=== PATIENT | female | born 1990 | race Caucasian/White ===

== ENCOUNTER 2016-12-05 08:35 | Emergency (ER) | payer OTHER ==
[2016-12-05 08:44] VITALS: TEMP 98.3; BMI 18.3
--- NOTE | 2016-12-05 09:16 | PDOC ---
History of Present Illness - General Chief Complaint: Vomiting/Diarrhea Stated Complaint: NAUSEA, DIZZINESS, VOMITING Time Seen by Provider: 12/05/16 09:04 - History of Present Illness Travel History: No Initial Comments: 12/05/16 09:20 26 yo F with no significant pmhx presents with two day history of nausea and vomiting. She states she has had diarrhea x2 and non- bilous vomiting x5 over the past two days. Denies blood in stool. She has associated chills but not fevers. She has had decreased appetite and has felt lightheaded with headache. Denies CP, SOB, abd. pain, or palpitations. 12/05/16 09:22 Timing/Duration: reports: constant Quality: reports: mild Past History - Past Medical History Allergies/Adverse Reactions: Allergies Allergy/AdvReac Type Severity Reaction Status Date / Time bee pollen Allergy Verified 12/05/16 08:40 No Known Drug Allergies AdvReac Verified 12/05/16 08:40 pollen Allergy Uncoded 12/05/16 08:40 Home Medications: Ambulatory Orders NK [No Known Home Medication] 06/20/16 Anemia: Yes (DURING ) Asthma: No Cancer: No Cardiac Disorders: No CVA: No COPD: No CHF: No Dementia: No Diabetes: No GI Disorders: No Disorders: No HTN: No Hypercholesterolemia: No Liver Disease: No Suicide Attempt (Hx): No Seizures: No Thyroid Disease: No - Reproductive History Is Patient Now?: No (#): 2 Para: 2 - Immunization History Immunization Up to Date: Yes - Psycho/Social/Smoking Cessation Hx Anxiety: No Suicidal Ideation: No Smoking History: Never smoked Have you smoked in the past 12 months: No Hx Alcohol Use: No Drug/Substance Use Hx: No Substance Use Type: None Hx Substance Use Treatment: No *Physical Exam - Vital Signs Last Vital Signs Temp Pulse Resp BP Pulse Ox 98.3 F 102 H 19 96/56 100 12/05/16 08:40 12/05/16 08:40 12/05/16 08:40 12/05/16 08:40 12/05/16 08:40 Medical Decision Making - Medical Decision Making 12/05/16 09:23 A:26 yo F with no significant pmhx presents with two day history of nausea and vomiting. Most likely viral gastroenteritis. P: * Will get urine . * IVF NS 1L bolus * Zofran 4mg IVPB for nausea. 12/05/16 11:31 * responded well to fluid and Zofran * Urine preg. negative. * Will discharge with Zofran and encourage hydration. *DC/Admit/Observation/Transfer Diagnosis at time of Disposition: Viral gastroenteritis - Discharge Dispostion Disposition: HOME Condition at time of disposition: Stable Admit: No - Patient Instructions Printed Discharge Instructions: DI for Viral Gastroenteritis -- Adult Additional Instructions: Follow up with primary doctor in one week. Take Zofran as needed for nausea. Drink plenty of fluids. Regular diet. Increase activity as tolerated. If symptoms worsen or you develop fever or chills please return to ED.
[2016-12-05] MEDS ORDERED: ONDANSETRON 4 MG/2 ML VIAL ONE (09:24)
[2016-12-05] MEDS: SODIUM CHLORIDE 1,000 ML IV STA ×2 (09:31→11:02)
[2016-12-05] MEDS: ONDANSETRON 4 MG/2 ML VIAL IVPB ONE (09:31)
--- NOTE | 2016-12-05 10:37 | PDOC ---
Attending Attestation - Resident Resident Name: Emmanuel Rincon - ED Attending Attestation I have performed the following: I have examined & evaluated the patient, The case was reviewed & discussed with the resident, I agree w/resident's findings & plan, Exceptions are as noted - HPI HPI: 12/05/16 10:33 Healthy 26-year-old female presents with nausea/vomiting/diarrhea 2 since last night, no associated abdominal pain. No other red flags on history. - Physicial Exam PE: 12/05/16 10:37 Afebrile, heart rate 100. No jaundice or pallor. Abdomen is soft/nontender/nondistended, no right lower quadrant tenderness - Medical Decision Making 12/05/16 10:37 Patient seen and evaluated with the resident. I agree with the overall evaluation, assessment, and management with the following summary of visit: 26-year-old female presents with nausea/vomiting/diarrhea now resolved without red flags on history or physical exam, almost consistent with gastritis. IV fluid rehydration Antiemetics Check urine Reassess, by mouth trial, dispo accordingly
[2016-12-05 11:48] VITALS: BP 102/53; PULSE 91
== END 2016-12-05 11:48 | disposition home or self-care (01) ==
LOC: JER 08:35
PROC: 3E033GC Introduction of Other Therapeutic Substance into Peripheral Vein, Percutaneous Approach (ICD-10-PCS; principal; 2016-12-05)
PROC: 3E0337Z Introduction of Electrolytic and Water Balance Substance into Peripheral Vein, Percutaneous Approach (ICD-10-PCS; 2016-12-05)
DX: A08.4 Viral intestinal infection, unspecified (principal); B97.89 Other viral agents as the cause of diseases classified elsewhere
CPT/HCPCS: 84703; 99284-25

== ENCOUNTER 2016-12-23 11:12 | Emergency (ER) | payer OTHER ==
[2016-12-23 11:22] VITALS: BP 103/67; PULSE 97; TEMP 99; BMI 18.3
--- NOTE | 2016-12-23 12:15 | PDOC ---
History of Present Illness - General Chief Complaint: Sore Throat Stated Complaint: THROAT/ LOSING VOICE Time Seen by Provider: 12/23/16 11:58 History Source: Patient Exam Limitations: No Limitations - History of Present Illness Initial Comments: 12/23/16 13:07 Complaint: Sore throat, losing voice Patient is a healthy 26-year-old female with 2-3 days of nasal congestion, sore throat, now losing voice. Patient states painful to swallow. No fever GENERAL/CONSTITUTIONAL: No fever, weakness. dizziness HEAD, EYES, EARS, NOSE AND THROAT: No change in vision. No ear pain or discharge. +sore throat. + Losing voice CARDIOVASCULAR: No chest pain RESPIRATORY: No shortness of breath or cough GASTROINTESTINAL: No pain, nausea, vomiting, diarrhea or constipation GENITOURINARY: No dysuria MUSCULOSKELETAL: No neck or back pain SKIN: No rash NEUROLOGIC: No headache, vertigo, loss of consciousness, or loss of sensation. GENERAL: The patient is awake, alert, and fully oriented, in no acute distress. HEAD: Normal with no signs of trauma. EYES: Pupils equal, round and reactive to light, sclera anicteric, conjunctiva clear. ENT: pharynx: no erythema, no exudate, uvula midline NECK: supple CHEST: clear, nontender, rr ABD: soft, nontender EXTREMITIES: Normal range of motion, no edema. NEUROLOGICAL: Normal speech, normal gait. SKIN: Warm, Dry Past History - Past Medical History Allergies/Adverse Reactions: Allergies Allergy/AdvReac Type Severity Reaction Status Date / Time bee pollen Allergy Verified 12/23/16 11:22 No Known Drug Allergies AdvReac Verified 12/23/16 11:22 pollen Allergy Uncoded 12/23/16 11:22 Home Medications: Ambulatory Orders NK [No Known Home Medication] 12/23/16 Anemia: Yes (DURING ) Asthma: No Cancer: No Cardiac Disorders: No CVA: No COPD: No CHF: No Dementia: No Diabetes: No GI Disorders: No Disorders: No HTN: No Hypercholesterolemia: No Liver Disease: No Suicide Attempt (Hx): No Seizures: No Thyroid Disease: No - Reproductive History (#): 2 Para: 2 - Immunization History Immunization Up to Date: Yes - Psycho/Social/Smoking Cessation Hx Anxiety: No Suicidal Ideation: No Smoking History: Never smoked Have you smoked in the past 12 months: No Hx Alcohol Use: No Drug/Substance Use Hx: No Substance Use Type: None Hx Substance Use Treatment: No *Physical Exam - Vital Signs Last Vital Signs Temp Pulse Resp BP Pulse Ox 99.0 F 97 H 20 103/67 98 12/23/16 11:19 12/23/16 11:19 12/23/16 11:19 12/23/16 11:19 12/23/16 11:19 Medical Decision Making - Medical Decision Making 12/23/16 13:12 URI symptoms for 2-3 days with sore throat and now losing voice, pharynx exam is non-concerning, her sinuses like a laryngitis, nothing more serious. We'll do strep and reassess, will give pain medicine as she has not taken any, no fever. If strep is positive we'll treat but unlikely, will give supportive care otherwise *DC/Admit/Observation/Transfer Diagnosis at time of Disposition: URI (upper respiratory infection) Qualifiers: URI type: unspecified URI Qualified Code(s): J06.9 - Acute upper respiratory infection, unspecified - Discharge Dispostion Disposition: HOME Condition at time of disposition: Stable Admit: No - Patient Instructions Printed Discharge Instructions: DI for Viral Upper Respiratory Infection -- Adult Additional Instructions: Drink 2-3 L of water daily Take Tylenol 650 mg every 4 hours or Motrin 600 mg every 6 hours for fever and pain Return to the nearest ER if short of breath, unable to swallow or feeling sicker Followup with your doctor in one to 2 days
[2016-12-23] MEDS ORDERED: IBUPROFEN 600 MG TABLET (FP) PO ONE ×2 (13:06→13:10)
== END 2016-12-23 13:19 | disposition home or self-care (01) ==
LOC: JERFT 11:12
DX: J06.9 Acute upper respiratory infection, unspecified (principal); B97.89 Other viral agents as the cause of diseases classified elsewhere
CPT/HCPCS: 87070; 87430; 99281-25

== ENCOUNTER 2018-04-22 18:21 | Emergency (ER) | payer OTHER ==
--- NOTE | 2018-04-22 18:44 | PDOC ---
Rapid Medical Evaluation Chief Complaint: Pain Time Seen by Provider: 04/22/18 18:41 Medical Evaluation: Allergies Allergy/AdvReac Type Severity Reaction Status Date / Time bee pollen Allergy Verified 01/12/18 13:22 No Known Drug Allergies AdvReac Verified 01/12/18 13:22 pollen Allergy Uncoded 01/12/18 13:22 04/22/18 18:42 I have performed a brief in person evaluation of this patient. The patient presents with a CC of: Abd pain HPI: Pt is a 27 YO female who states over the past 24 hours she has had lower abd pain, she admits to white vaginal discharge, denies STD hx. PE: Skin: Clear Heart: RRR Lungs: Clear Abd: No pain in the RLQ or LLQ, no rebound tenderness MS: Moves all extremities without difficulty Neuro: Appropriate affect, Psych: appropriate affect I have ordered: abd protocol with STD testing The patient will proceed to the ED for further evaluation. Discharge Disposition - Diagnosis Abdominal pain Qualifiers: Abdominal location: unspecified location Qualified Code(s): R10.9 - Unspecified abdominal pain - Referrals Referrals: Yashira Gonzalez MD [Primary Care Provider] - - Patient Instructions - Post Discharge Activity
[2018-04-22 18:47] VITALS: BP 105/67; PULSE 87; TEMP 99.1; BMI 17.4
--- NOTE | 2018-04-22 19:52 | PDOC ---
History of Present Illness - General Chief Complaint: Pain Stated Complaint: Nausea/ ABD PAIN Time Seen by Provider: 04/22/18 18:41 History Source: Patient, Spouse Exam Limitations: No Limitations - History of Present Illness Travel History: No Initial Comments: 04/22/18 19:53 Patient was sent from urgent care this afternoon for evaluation of 3-4 days of abdominal pain, bloating, and vaginal discharge. had a pelvic exam at the urgent care today where some cultures were obtained and sent, also had a urinalysis for which was deemed negative. there was no definitive diagnosis and was instructed to come to the emergency department for further evaluation and treatment. She denies fever, states his had some intermittent nausea, no breast tenderness or evidence of . has irregular menses and has not had a period since the beginning of March but was deemed negative for today. Has history of ovarian cysts with rupture a few years ago but did not feel that same type of pain. Is her home they both report to be exclusive and monogamous. Reported any sexually transmitted diseases in the past. has pain with intercourse on and off x 1 month. Abdominal Pain Onset Location: reports: suprapubic, generalized abdomen Pain Radiation: denies: no radiation Past History - Travel Traveled outside of the country in the last 30 days: No Close contact w/someone who was outside of country & ill: No - Past Medical History Allergies/Adverse Reactions: Allergies Allergy/AdvReac Type Severity Reaction Status Date / Time bee pollen Allergy Verified 04/22/18 18:42 No Known Drug Allergies AdvReac Verified 04/22/18 18:42 pollen Allergy Uncoded 04/22/18 18:42 Home Medications: Ambulatory Orders NK [No Known Home Medication] 12/23/16 Anemia: Yes (DURING ) Asthma: No Cancer: No Cardiac Disorders: No CVA: No COPD: No CHF: No Dementia: No Diabetes: No GI Disorders: No Disorders: No HTN: No Hypercholesterolemia: No Liver Disease: No Seizures: No Thyroid Disease: No - Reproductive History (#): 2 Para: 2 - Immunization History Immunization Up to Date: Yes - Suicide/Smoking/Psychosocial Hx Smoking History: Never smoked Have you smoked in the past 12 months: No Hx Alcohol Use: No Drug/Substance Use Hx: No Substance Use Type: None Hx Substance Use Treatment: No Review of Systems - Review of Systems Able to Perform ROS?: Yes Is the patient limited Mauritian proficient: Yes Constitutional: Yes: Symptoms Reported, See HPI, Malaise. No: Fever, Loss of Appetite HEENTM: No: Symptoms Reported : Yes: Symptoms Reported, See HPI, Discharge (thin white). No: Burning Musculoskeletal: No: Symptoms Reported Integumentary: No: Symptoms Reported All Other Systems: Reviewed and Negative *Physical Exam - Vital Signs Last Vital Signs Temp Pulse Resp BP Pulse Ox 99.1 F 87 16 105/67 100 04/22/18 18:43 04/22/18 18:43 04/22/18 18:43 04/22/18 18:43 04/22/18 18:43 - Physical Exam General Appearance: Yes: Nourished, Appropriately Dressed. No: Apparent Distress HEENT: positive: JOSHUA, Normal ENT Inspection, TMs Normal, Pharynx Normal Neck: positive: Supple. negative: Tender Respiratory/Chest: positive: Lungs Clear, Normal Breath Sounds Cardiovascular: positive: Regular Rate Female Pelvic Exam: positive: normal external exam (no masses, lesions, ulcerations noted), cervical os closed, normal adnexa (no palpable masses), CMT (patient has positive cervical motion tenderness and states his #8 on a 1-10 scale for pain), discharge (thin white but not copious from cervix), adnexal tenderness (has bilateral tenderness but worse with cervical motion), uterus ( soft nontender no masses palpated). negative: Bartholin mass Gastrointestinal/Abdominal: positive: Normal Bowel Sounds, Tender, Soft Musculoskeletal: positive: Normal Inspection. negative: CVA Tenderness Extremity: positive: Normal Capillary Refill, Normal Range of Motion. negative : Tender Integumentary: positive: Dry, Warm, Pale Neurologic: positive: softball coach II-XII NML intact, Fully Oriented, Alert, Normal Mood/ Affect, Normal Response, Motor Strength 5/5 Medical Decision Making - Medical Decision Making 04/22/18 19:52 After evaluation and exam, found patient to have been sent from urgent care today for thorough workup for abdominal pain and pelvic pain possible PID. Will transfer to main number department for further evaluation and review of obtain laboratory work and possible further testing. Patient updated this plan. Case was turned over to charge nurse Viktor, and NKECHI Del Toro for remainder of care. He should and has been updated to plan labs obtained and will move to bed 3 in [facility] area 04/22/18 20:00 *DC/Admit/Observation/Transfer Diagnosis at time of Disposition: Abdominal pain Qualifiers: Abdominal location: unspecified location Qualified Code(s): R10.9 - Unspecified abdominal pain - Referrals Referrals: Yashira Gonzalez MD [Primary Care Provider] - - Patient Instructions - Post Discharge Activity
[2018-04-22 20:14] LABS: BASO % 0.4 % (0-2.0); EOS % 0.7 % (0-4.5); HEMATOCRIT 38.1 % (32.4-45.2); HEMOGLOBIN 12.7 GM/dL (10.7-15.3); LYMPH % 21.1 % (8-40); MCH 28.9 pg (25.7-33.7); MCHC 33.2 g/dl (32.0-36.0); NEUT % 70.8 % (42.8-82.8); PLATELET COUNT 313 K/MM3 (134-434); RBC 4.38 M/mm3 (3.60-5.2); RDW 13.3 % (11.6-15.6); WHITE BLOOD COUNT 8.1 K/mm3 (4.0-10.0)
[2018-04-22 20:18] LABS: URINE APPEARANCE CLEAR; URINE BILIRUBIN NEGATIVE (<2.0 mg/dL); URINE COLOR LTYELLOW; URINE GLUCOSE (UA) NEGATIVE (NEGATIVE); URINE KETONE TRACE (NEGATIVE); URINE LEUK ESTERASE NEGATIVE (NEGATIVE); URINE NITRITE NEGATIVE (NEGATIVE); URINE PROTEIN NEGATIVE (NEGATIVE); URINE UROBILINOGEN NEGATIVE mg/dL (0.2-1.0)
--- NOTE | 2018-04-22 20:35 | PDOC ---
*Physical Exam - Vital Signs Last Vital Signs Temp Pulse Resp BP Pulse Ox 99.1 F 87 16 105/67 100 04/22/18 18:43 04/22/18 18:43 04/22/18 18:43 04/22/18 18:43 04/22/18 18:43 ED Treatment Course - LABORATORY CBC & Chemistry Diagram: 04/22/18 20:00 04/22/18 20:00 - ADDITIONAL ORDERS Additional order review: Laboratory Results 04/22/18 04/22/18 20:00 20:00 Urine Color Ltyellow Urine Appearance Clear Urine pH 6.0 Ur Specific [place] 1.015 Urine Protein Negative Urine Glucose (UA) Negative Urine Ketones Trace H Urine Blood Negative Urine Nitrite Negative Urine Bilirubin Negative Urine Urobilinogen Negative Ur Leukocyte Esterase Negative Urine HCG, Qual Negative 04/22/18 20:00 RBC 4.38 MCV 87.0 MCHC 33.2 RDW 13.3 MPV 7.0 L Neutrophils % 70.8 D Lymphocytes % 21.1 D Monocytes % 7.0 Eosinophils % 0.7 Basophils % 0.4 Medical Decision Making - Medical Decision Making 04/22/18 20:34 Sign out received from [employer]. Pt pending labs. (+) CMT. Will also consider transvaginal us. Possible PID? *DC/Admit/Observation/Transfer Diagnosis at time of Disposition: Vaginal yeast infection, Pelvic pain Ovarian cyst Qualifiers: Laterality: left Qualified Code(s): N83.202 - Unspecified ovarian cyst, left side - Discharge Dispostion Disposition: HOME Condition at time of disposition: Stable Decision to Admit order: No - Prescriptions Prescriptions: Fluconazole 150 mg PO ONCE #1 tablet - Referrals Referrals: Yashira Gonzalez MD [Primary Care Provider] - - Patient Instructions Printed Discharge Instructions: DI for Ovarian Cyst, DI for Pelvic Pain Additional Instructions: You have pelvic pain, which may be caused by your yeast infection and ovarian cyst You were also prophylactically treated for STD's today. Your ultrasound shows a small cyst on the L side. Please take ibuprofen 600mg every 6 hours as needed for pain Take the fluconazole on Saturday for your yeast infection. A prescription was sent to the pharmacy Follow up with your [employer] this week Return to the ED for any new or worsening symptoms - Post Discharge Activity Forms/Work/School Notes: Back to Work
[2018-04-22 20:46] LABS: ALBUMIN 3.1 g/dl (3.4-5.0); ANION GAP 7 MMOL/L (8-16); BILIRUBIN,TOTAL 0.4 mg/dL (0.2-1); BLOOD UREA NITROGEN 12 mg/dL (7-18); CHLORIDE 108 mmol/L (98-107); CO2 27 mmol/L (21-32); CREATININE 0.6 mg/dL (0.55-1.3); GLUCOSE,RANDOM 95 mg/dL (74-106); LIPASE 131 U/L (73-393); POTASSIUM 4.1 mmol/L (3.5-5.1); SGOT/AST 10 U/L (15-37); SGPT/ALT 16 U/L (13-61); SODIUM 142 mmol/L (136-145); TOT PROT 7.4 g/dl (6.4-8.2)
[2018-04-22 20:47] LABS: ALK PHOS 61 U/L (45-117)
[2018-04-22 21:07] LABS: CALCIUM 8.9 mg/dL (8.5-10.1)
[2018-04-22] MEDS ORDERED: AZITHROMYCIN 500 MG TABLET PO ONE (23:12)
[2018-04-22] MEDS ORDERED: FLUCONAZOLE 50 MG TABLET PO ONE (23:13)
[2018-04-22] MEDS ORDERED: AZITHROMYCIN 500 MG TABLET ONE (23:27)
[2018-04-22] MEDS ORDERED: cefTRIAXone SODIUM 1 GM VIAL ONE (23:27)
== END 2018-04-23 00:40 | disposition home or self-care (01) ==
LOC: JER 18:21
DX: B37.3 Candidiasis of vulva and vagina (principal); N83.202 Unspecified ovarian cyst, left side
CPT/HCPCS: 36415; 76830-TC; 80053; 81003; 83690; 84703; 85025; 87070; 87205; 87491; 87591; 87661; 96372; 99282-25

== ENCOUNTER 2018-07-15 16:15 | Emergency (ER) | payer OTHER ==
[2018-07-15 16:30] VITALS: BP 105/65; PULSE 85; TEMP 98.5; BMI 18.3
--- NOTE | 2018-07-15 16:33 | PDOC ---
Rapid Medical Evaluation Chief Complaint: Vaginal Bleeding Time Seen by Provider: 07/15/18 16:30 Medical Evaluation: Allergies Allergy/AdvReac Type Severity Reaction Status Date / Time bee pollen Allergy Verified 04/22/18 18:42 No Known Drug Allergies AdvReac Verified 04/22/18 18:42 pollen Allergy Uncoded 04/22/18 18:42 Vital Signs Temp Pulse Resp BP Pulse Ox 98.5 F 85 18 105/65 97 07/15/18 16:27 07/15/18 16:27 07/15/18 16:27 07/15/18 16:27 07/15/18 16:27 07/15/18 16:30 I have performed a brief in-person evaluation of this patient. The patient presents with a chief complaint of: 2 weeks of vaginal bleeding. pt using nexplanon for BCM. report had nexplanon for 4 years which was changed to new nexplanon 3 month ago Pertinent physical exam findings:A&O x 3 I have ordered the following:CBC, CMP,Uhc, pelvis us The patient will proceed to the ED for further evaluation Discharge Disposition - Diagnosis Vaginal bleeding - Discharge Dispostion Condition at time of disposition: Stable - Referrals - Patient Instructions - Post Discharge Activity
[2018-07-15 17:24] LABS: BASO % 0.6 % (0-2.0); EOS % 1.1 % (0-4.5); HEMATOCRIT 37.9 % (32.4-45.2); HEMOGLOBIN 13.1 GM/dL (10.7-15.3); LYMPH % 30.3 % (8-40); MCHC 34.6 g/dl (32.0-36.0); MEAN CELL VOLUME 86.6 fl (80-96); MEAN PLT VOLUME 7.2 fl (7.5-11.1); MONO % 7.2 % (3.8-10.2); NEUT % 60.8 % (42.8-82.8); PLATELET COUNT 311 K/MM3 (134-434); RBC 4.37 M/mm3 (3.60-5.2); RDW 13.5 % (11.6-15.6); WHITE BLOOD COUNT 6.4 K/mm3 (4.0-10.0)
[2018-07-15 17:50] LABS: ALBUMIN 4.1 g/dl (3.4-5.0); ALK PHOS 68 U/L (45-117); ANION GAP 7 MMOL/L (8-16); BILIRUBIN,TOTAL 0.4 mg/dL (0.2-1); BLOOD UREA NITROGEN 16 mg/dL (7-18); CALCIUM 8.7 mg/dL (8.5-10.1); CHLORIDE 110 mmol/L (98-107); CO2 25 mmol/L (21-32); CREATININE 0.7 mg/dL (0.55-1.3); GLUCOSE,RANDOM 90 mg/dL (74-106); POTASSIUM 3.9 mmol/L (3.5-5.1); SGOT/AST 11 U/L (15-37); SGPT/ALT 20 U/L (13-61); SODIUM 142 mmol/L (136-145); TOT PROT 7.4 g/dl (6.4-8.2)
--- NOTE | 2018-07-15 18:25 | PDOC ---
History of Present Illness - General Chief Complaint: Vaginal Bleeding Stated Complaint: Vaginal Bleeding Time Seen by Provider: 07/15/18 16:30 History Source: Patient Exam Limitations: No Limitations - History of Present Illness Travel History: No Initial Comments: 07/15/18 17:22 28-year-old female with no past medical history except for ovarian cyst presents to ED with vaginal bleeding for the past 8 days with passage of large clots. Patient states had her implantable control medication changed 3 months ago at [facility] after having the nexaplanon in for 4 years. Patient states has had no abdominal pain, weakness nausea, or dizziness. Patient states has an appointment next month with her [facility]A REPAIRER for follow-up. Timing/Duration: reports: constant Activities at Onset: reports: none Aggravating Factors: improves with: None Alleviating Factors: improves with: None Past History - Travel Traveled outside of the country in the last 30 days: No - Past Medical History Allergies/Adverse Reactions: Allergies Allergy/AdvReac Type Severity Reaction Status Date / Time bee pollen Allergy Verified 04/22/18 18:42 No Known Drug Allergies AdvReac Verified 04/22/18 18:42 pollen Allergy Uncoded 04/22/18 18:42 Home Medications: Ambulatory Orders Fluconazole 150 mg PO ONCE #1 tablet 04/22/18 Ibuprofen [Motrin -] 600 mg PO QID #28 tablet 04/23/18 Anemia: Yes (DURING ) Asthma: No Cancer: No Cardiac Disorders: No CVA: No COPD: No CHF: No Dementia: No Diabetes: No GI Disorders: No Disorders: No HTN: No Hypercholesterolemia: No Liver Disease: No Seizures: No Thyroid Disease: No - Reproductive History Is Patient Now?: No (#): 2 Para: 2 Cervical CA: No Dysfunctional Uterine Bleeding: No Ectopic : No Endometrial CA: No Polycystic Ovaries: No Therapeutic (s) & number: No Tubal Ligation: No - Immunization History Immunization Up to Date: Yes - Suicide/Smoking/Psychosocial Hx Smoking History: Never smoked Have you smoked in the past 12 months: No Information on smoking cessation initiated: No Hx Alcohol Use: No Drug/Substance Use Hx: No Substance Use Type: None Hx Substance Use Treatment: No Patient Lives Alone: No Lives with/in: spouse/SO Review of Systems - Review of Systems Able to Perform ROS?: Yes Constitutional: No: Symptoms Reported HEENTM: No: Symptoms Reported Respiratory: No: Symptoms reported Cardiac (ROS): No: Symptoms Reported ABD/GI: No: Symptoms Reported : Yes: Discharge Musculoskeletal: No: Symptoms Reported Integumentary: No: Symptoms Reported Neurological: No: Symptoms reported *Physical Exam - Vital Signs Last Vital Signs Temp Pulse Resp BP Pulse Ox 98.5 F 85 18 105/65 97 07/15/18 16:27 07/15/18 16:27 07/15/18 16:27 07/15/18 16:27 07/15/18 16:27 - Physical Exam General Appearance: Yes: Nourished, Appropriately Dressed. No: Apparent Distress HEENT: negative: Pale Conjunctivae Respiratory/Chest: positive: Lungs Clear, Normal Breath Sounds. negative: Respiratory Distress, Accessory Muscle Use Cardiovascular: positive: Regular Rhythm, Regular Rate. negative: Murmur Female Pelvic Exam: positive: vaginal bleeding (bright red blood in moderate amount with grape size clot) Gastrointestinal/Abdominal: positive: Soft. negative: Distended, Guarding, Rebound, Tenderness Musculoskeletal: negative: CVA Tenderness Integumentary: positive: Normal Color, Warm, Moist Neurologic: positive: Motor Strength 5/5 (ambulatory) Moderate Sedation - Procedure Monitoring Vital Signs: Procedure Monitoring Vital Signs Temperature 98.5 F 07/15/18 16:27 Pulse Rate 85 07/15/18 16:27 Respiratory Rate 18 07/15/18 16:27 Blood Pressure 105/65 07/15/18 16:27 O2 Sat by Pulse Oximetry (%) 97 07/15/18 16:27 ED Treatment Course - LABORATORY CBC & Chemistry Diagram: 07/15/18 16:55 07/15/18 16:55 - ADDITIONAL ORDERS Additional order review: Laboratory Results 07/15/18 07/15/18 16:55 16:55 Sodium 142 Potassium 3.9 Chloride 110 H Carbon Dioxide 25 Anion Gap 7 L BUN 16 Creatinine 0.7 Creat Clearance w eGFR > 60 Random Glucose 90 Calcium 8.7 Total Bilirubin 0.4 AST 11 L ALT 20 Alkaline Phosphatase 68 Total Protein 7.4 Albumin 4.1 Urine HCG, Qual Negative 07/15/18 16:55 RBC 4.37 MCV 86.6 MCHC 34.6 RDW 13.5 MPV 7.2 L Neutrophils % 60.8 Lymphocytes % 30.3 D Monocytes % 7.2 Eosinophils % 1.1 Basophils % 0.6 Medical Decision Making - Medical Decision Making 07/15/18 17:24 Chief complaint: Vaginal bleeding times one week with clots no abdominal pain no weakness no dizziness no fever no dysuria Exam: No abdominal tenderness moderate amount of bright red blood with grape size clots noted on sanitary napkin Plan: Labs, urine , pelvic ultrasound 07/15/18 18:26 Laboratory Tests 07/15/18 07/15/18 07/15/18 16:55 16:55 16:55 WBC 6.4 Hgb 13.1 Hct 37.9 MPV 7.2 L Neutrophils % 60.8 Lymphocytes % 30.3 D Sodium 142 Potassium 3.9 Chloride 110 H Carbon Dioxide 25 Anion Gap 7 L BUN 16 Creatinine 0.7 Random Glucose 90 Calcium 8.7 Total Bilirubin 0.4 AST 11 L ALT 20 Alkaline Phosphatase 68 Total Protein 7.4 Albumin 4.1 Urine HCG, Qual Negative Patient remained stable with no complaints. Patient to be discharged home with and children. Patient to follow up with [facility]MB[facility]LLA REPAIRER next month *DC/Admit/Observation/Transfer Diagnosis at time of Disposition: Vaginal bleeding - Discharge Dispostion Disposition: HOME Condition at time of disposition: Good - Referrals Referrals: Ashley Haddad MD [Primary Care Provider] - - Patient Instructions Printed Discharge Instructions: DI for Vaginal Bleeding Additional Instructions: Try to eat high iron foods such as beans, red meats green leafy vegetables and if she develop any abdominal cramping , may take Tylenol for pain. If symptoms worsen and you develop difficulty breathing, weakness dizziness or severe abdominal pain please return to the emergency room immediately. otherwise follow-up with her UMB[employer]LLA REPAIRER as scheduled next month. - Post Discharge Activity
== END 2018-07-15 18:38 | disposition home or self-care (01) ==
LOC: JER 16:15
DX: N93.9 Abnormal uterine and vaginal bleeding, unspecified (principal)
CPT/HCPCS: 36415; 76856-TC; 80053; 84703; 85025; 99282-25

== ENCOUNTER → 2019-02-16 | Day surgery (SDC) | payer OTHER ==
--- NOTE | 2019-02-17 11:46 | PATH ---
Surgical Pathology Report Patient Name: UOG HARO [facility]. Rec. 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 Electronically Signed Indira Khan M.D. Gross Description Received in formalin labeled "right breast 10-11:00," are 6 [place]-yellow, cylindrical portions of fibroadipose tissue ranging from 0.2-0.9 cm in length and averaging 0.1 cm in diameter. The specimens are submitted in toto in one cassette. Time to formalin fixation: Less than one minute Total formalin fixation time: Approximately 8 hours. /02/16/2019 [facility]/02/16/2019
== END | disposition home or self-care (01) ==
LOC: JRADUS-SUR 09:01 → JRADUS 09:01
PROVIDERS: ATTEND Obstetrics & Gynecology
PROC: 0HBT3ZX Excision of Right Breast, Percutaneous Approach, Diagnostic (ICD-10-PCS; principal; 2019-02-16)
DX: D24.1 Benign neoplasm of right breast (principal)
CPT/HCPCS: 19083; 87899; 88305-TC; A4648

== ENCOUNTER 2019-05-20 08:32 | Emergency (ER) | payer OTHER ==
[2019-05-20 08:50] VITALS: BP 95/48; PULSE 68; TEMP 98.1; BMI 20.1
--- NOTE | 2019-05-20 09:15 | PDOC ---
History of Present Illness - General Chief Complaint: Vaginal Sxs Stated Complaint: VAGINAL DISCOMFORT Time Seen by Provider: 05/20/19 08:51 - History of Present Illness Initial Comments: 05/20/19 09:09 CHIEF COMPLAINT: vaginal discharge/odor HISTORY OF PRESENT ILLNESS: 28 yo F with no significant PMH [facility] concerns of vaginal discharge and odor for 1 week. Patient states she used OTC vaginal suppository antifungal with some relief, and that she has an appointment with [facility] "but I couldn't wait any longer. " She states she will get blood testing for HIV/syphilis at [facility] but wanted to "get a culture" here. No recent travel or sick contacts. PAST MEDICAL HISTORY: Denies past medical history FAMILY HISTORY: Denies SOCIAL HISTORY: Denies tobacco, alcohol, illicit drug use. SURGICAL HISTORY: Denies ALLERGIES: No known drug allergies REVIEW OF SYSTEMS General/Constitutional: Denies fever or chills. Denies weakness, weight change. HEENT: Denies change in vision. Denies ear pain or discharge. Denies sore throat. Cardiovascular: Denies chest pain or shortness of breath. Respiratory: Denies cough, wheezing, or hemoptysis. Gastrointestinal: Denies nausea, vomiting, diarrhea or constipation. Denies rectal bleeding. Genitourinary: Vaginal discharge/odor/discomfort x 1 week. Denies dysuria, frequency, or change in urination. Musculoskeletal: Denies joint or muscle swelling or pain. Denies neck or back pain. Skin and breasts: Denies rash or easy bruising. Neurologic: Denies headache, vertigo, loss of consciousness, or loss of sensation. PHYSICAL EXAM General Appearance: Well-appearing, appropriately dressed. No apparent distress , no intoxication. HEENT: EOMI, PERRLA, normal ENT inspection, normal voice, TMs normal, pharynx normal. No conjunctival pallor. No photophobia, scleral icterus. Neck: Supple. Trachea midline. No tenderness, rigidity, carotid bruit, stridor , lymphadenopathy, or thyromegaly. Respiratory/Chest: Lungs CTAB. No shortness of breath, chest tenderness, respiratory distress, accessory muscle use. No crackles, rales, rhonchi, stridor , wheezing, dullness Cardiovascular: RRR. S1, S2. No JVD, murmur, bradycardia, tachycardia. Vascular Pulses: Dorsalis-Pedis (R): 2+, Dorsalis-Pedis (L): 2+ Gastrointestinal/Abdominal: Normal bowel sounds. Abdomen soft, non-distended. No tenderness or rebound tenderness. No organomegaly, pulsatile mass, guarding , hernia, hepatomegaly, splenomegaly. Pelvic: External genitalia normal without lesions. Vaginal vault with thin, white discharge without odor. Cervix is long and closed. No cervical motion tenderness. Uterus is nontender and normal in size. Adnexa are nontender and without masses. Lymphatic: No adenopathy, tenderness. Musculoskeletal/Extremities: Normal inspection. FROM of all extremities, normal capillary refill. Pelvis Stable. No CVA tenderness. No tenderness to extremities, pedal edema, swelling, erythema or deformity. Integumentary: Appropriate color, dry, warm. No cyanosis, erythema, jaundice or rash Neurologic: automotive machinist II-XII intact. Fully oriented, alert. Appropriate mood/affect. Motor strength 5/5. No appreciable EOM palsy, facial droop or sensory deficit. 05/20/19 09:25 Past History - Past Medical History Allergies/Adverse Reactions: Allergies Allergy/AdvReac Type Severity Reaction Status Date / Time bee pollen Allergy Verified 05/20/19 08:52 No Known Drug Allergies AdvReac Verified 05/20/19 08:52 pollen Allergy Uncoded 05/20/19 08:52 Home Medications: Ambulatory Orders Fluconazole 150 mg PO ONCE #1 tablet 04/22/18 Ibuprofen [Motrin -] 600 mg PO QID #28 tablet 04/23/18 Fluconazole [Diflucan] 150 mg PO ONCE #1 tablet 05/20/19 Anemia: Yes (DURING ) Asthma: No Cancer: No Cardiac Disorders: No CVA: No COPD: No CHF: No Dementia: No Diabetes: No GI Disorders: No Disorders: No HTN: No Hypercholesterolemia: No Liver Disease: No Seizures: No Thyroid Disease: No - Reproductive History (#): 2 Para: 2 Cervical CA: No Dysfunctional Uterine Bleeding: No Ectopic : No Endometrial CA: No Polycystic Ovaries: No Therapeutic (s) & number: No Tubal Ligation: No - Immunization History Immunization Up to Date: Yes - Psycho Social/Smoking Cessation Hx Smoking History: Never smoked Have you smoked in the past 12 months: No Hx Alcohol Use: No Drug/Substance Use Hx: No Substance Use Type: None Hx Substance Use Treatment: No *Physical Exam - Vital Signs Last Vital Signs Temp Pulse Resp BP Pulse Ox 98.1 F 68 14 95/48 L 100 05/20/19 08:48 05/20/19 08:48 05/20/19 08:48 05/20/19 08:48 05/20/19 08:48 Medical Decision Making - Medical Decision Making 05/20/19 09:28 28 yo F with no significant PMH [facility] with concerns of vaginal discharge and odor for 1 week. -UA, Upreg, Ucx -ct/gc, genital culture Advised patient to take medication as prescribed and follow up with [facility] as scheduled tomorrow. Advised patient of signs and symptoms for return to ED. Patient verbalized understanding and agrees to plan. Discharge - Discharge Information Problems reviewed: Yes Clinical Impression/Diagnosis: Yeast infection Condition: Stable Disposition: HOME - Admission No - Additional Discharge Information Prescriptions: Fluconazole [Diflucan] 150 mg PO ONCE #1 tablet - Follow up/Referral Referrals: [facility] [Outside] Abimael Jackson MD [Staff Physician] - - Patient Discharge Instructions Patient Printed Discharge Instructions: Facts About Sexually Transmitted Infections, DI for Vaginal Yeast Infection Additional Instructions: Please take medications as prescribed and follow up with [facility] for remaining STD testing as discussed. If you develop any severe pelvic pain or vaginal bleeding, nausea, vomiting, or any new or worsening symptoms, please return to the ER immediately. - Post Discharge Activity
[2019-05-20 09:20] LABS: URINE APPEARANCE CLOUDY; URINE BILIRUBIN NEGATIVE (NEGATIVE); URINE COLOR YELLOW; URINE GLUCOSE (UA) NEGATIVE (NEGATIVE); URINE KETONE NEGATIVE (NEGATIVE); URINE LEUK ESTERASE NEGATIVE (NEGATIVE); URINE NITRITE NEGATIVE (NEGATIVE); URINE PROTEIN NEGATIVE (NEGATIVE); URINE UROBILINOGEN 0.2 mg/dL (0.2-1.0)
== END 2019-05-20 09:25 | disposition home or self-care (01) ==
LOC: JERFT 08:32
DX: B37.9 Candidiasis, unspecified (principal); Z91.030 Bee allergy status
CPT/HCPCS: 36415; 81003; 84703; 87070; 87077; 87086; 87205; 87491; 87591; 99282-25

== ENCOUNTER 2019-08-26 16:52 | Emergency (ER) | payer OTHER ==
[2019-08-26] MEDS ORDERED: ACETAMINOPHEN 325 MG TABLET (FP) PO ONE (16:59)
--- NOTE | 2019-08-26 16:59 | PDOC ---
Rapid Medical Evaluation Time Seen by Provider: 08/26/19 16:56 Medical Evaluation: Allergies Allergy/AdvReac Type Severity Reaction Status Date / Time bee pollen Allergy Verified 05/20/19 08:52 No Known Drug Allergies AdvReac Verified 05/20/19 08:52 pollen Allergy Uncoded 05/20/19 08:52 08/26/19 16:56 Pt presents for evaluation of flu for one day. She states that her daughter was just diagnosed at with flu at her pediatricians office. Last took Motrin at 3:30 Exam: NAD, afebrile, ambulatory Orders: tylenol Pt to proceed to the ER for further evaluation Discharge Disposition - Diagnosis Flu-like symptoms - Referrals - Patient Instructions - Post Discharge Activity
[2019-08-26 17:01] VITALS: BP 99/56; PULSE 104; TEMP 99; BMI 18.3
[2019-08-26] MEDS ORDERED: ACETAMINOPHEN 325 MG TABLET (FP) ONE ×2 (17:23→17:24)
--- NOTE | 2019-08-26 17:56 | PDOC ---
History of Present Illness - General Chief Complaint: Cold Symptoms Stated Complaint: FLU LIKE SYMPTOMS Time Seen by Provider: 08/26/19 16:56 History Source: Patient Exam Limitations: No Limitations - History of Present Illness Initial Comments: 08/26/19 17:50 29-year-old female denies past medical history presents complaining of subjective fever, chills, sore throat, body aches for 36 hours. Her 5-year-old daughter was diagnosed with influenza at the character actress office today. Denies shortness of breath, headache, chest pain, abdominal pain, nausea, vomiting, diarrhea, recent travel. Patient did not receive flu vaccine this season. ROS: GENERAL/CONSTITUTIONAL: Subjective fever, chills, no weakness, dizziness HEAD, EYES, EARS, NOSE AND THROAT: Sore throat, no changes in vision, No ear pain or discharge CARDIOVASCULAR: No chest pain RESPIRATORY: Cough, no shortness of breath GASTROINTESTINAL: No pain, nausea, vomiting, diarrhea or constipation GENITOURINARY: No dysuria MUSCULOSKELETAL: No neck or back pain SKIN: No rash NEUROLOGIC: No headache, vertigo, loss of consciousness, or loss of sensation PE: GENERAL: well-appearing, NAD HEAD: NCAT EYES: Pupils equal, round and reactive to light, sclera anicteric, conjunctiva clear ENT: pharynx: Minimal erythema, no exudate, uvula midline NECK: supple CHEST: nontender RESP: clear, no w/r/r CARDIO: rrr, no m/g/r ABD: +BS, soft, nontender, non distended BACK: no midline spinal ttp, no CVAT EXTREMITIES: Normal range of motion, no edema NEUROLOGICAL: Normal speech, normal gait SKIN: Warm, Dry Is this a multiple visit Asthma Patient?: No Past History - Past Medical History Allergies/Adverse Reactions: Allergies Allergy/AdvReac Type Severity Reaction Status Date / Time bee pollen Allergy Verified 08/26/19 16:57 No Known Drug Allergies AdvReac Verified 08/26/19 16:57 pollen Allergy Uncoded 08/26/19 16:57 Home Medications: Ambulatory Orders Fluconazole 150 mg PO ONCE #1 tablet 04/22/18 Ibuprofen [Motrin -] 600 mg PO QID #28 tablet 04/23/18 Fluconazole [Diflucan] 150 mg PO ONCE #1 tablet 05/20/19 metroNIDAZOLE [Metronidazole] 500 mg PO BID 7 Days #14 tablet 05/22/19 Oseltamivir Phosphate [Tamiflu] 75 mg PO BID 5 Days #10 capsule 08/26/19 Anemia: Yes (DURING ) Asthma: No Cancer: No Cardiac Disorders: No CVA: No COPD: No CHF: No Dementia: No Diabetes: No GI Disorders: No Disorders: No HTN: No Hypercholesterolemia: No Liver Disease: No Seizures: No Thyroid Disease: No - Reproductive History (#): 2 Para: 2 Cervical CA: No Dysfunctional Uterine Bleeding: No Ectopic : No Endometrial CA: No Polycystic Ovaries: No Therapeutic (s) & number: No Tubal Ligation: No - Immunization History Immunization Up to Date: Yes - Psycho Social/Smoking Cessation Hx Smoking History: Never smoked Have you smoked in the past 12 months: No Hx Alcohol Use: Yes Drug/Substance Use Hx: No Substance Use Type: None Hx Substance Use Treatment: No *Physical Exam - Vital Signs Last Vital Signs Temp Pulse Resp BP Pulse Ox 99 F 104 H 18 99/56 L 99 08/26/19 16:57 08/26/19 16:57 08/26/19 16:57 08/26/19 16:57 08/26/19 16:57 ED Treatment Course - Medications Given in the ED: ED Medications Discontinued Medications Generic Name Dose Route Start Last Admin Trade Name Ambrosioq PRN Reason Stop Dose Admin Acetaminophen 975 mg 08/26/19 16:59 08/26/19 17:22 Tylenol - PO 08/26/19 17:00 975 mg ONCE ONE Administration Medical Decision Making - Medical Decision Making 08/26/19 17:56 29-year-old female presents with 36 hours of cough, body aches, sore throat, subjective fever, chills. 5-year-old daughter was diagnosed today with influenza. Rapid strep ordered by [facility] with negative results Will treat patient with Tamiflu Supportive care Return precautions discussed Stable for discharge Discharge - Discharge Information Problems reviewed: Yes Clinical Impression/Diagnosis: Flu-like symptoms Condition: Stable Disposition: HOME - Admission No - Follow up/Referral Referrals: Yashira Gonzalez MD [Primary Care Provider] - - Patient Discharge Instructions Additional Instructions: Rest, remain hydrated Take Tamiflu 75 mg 1 tablet twice a day x5 days Alternate between acetaminophen 975 mg and ibuprofen 600 mg every 6 hours as needed for pain Return to ED if chest pain, shortness of breath, fever, chills or worsening symptoms - Post Discharge Activity
== END 2019-08-26 18:01 | disposition home or self-care (01) ==
LOC: JERFT 16:52
DX: J11.1 Influenza due to unidentified influenza virus with other respiratory manifestations (principal); Z91.030 Bee allergy status
CPT/HCPCS: 87070; 87880; 99281-25

== ENCOUNTER 2019-09-18 10:55 | Emergency (ER) | payer OTHER ==
[2019-09-18 11:04] VITALS: BP 110/53; PULSE 69; TEMP 98.3; BMI 18.9
[2019-09-18 12:51] LABS: BASO % 0.6 % (0-2.0); EOS % 1.2 % (0-4.5); HEMATOCRIT 37.8 % (32.4-45.2); HEMOGLOBIN 12.6 GM/dL (10.7-15.3); LYMPH % 31.1 % (8-40); MCH 29.2 pg (25.7-33.7); MCHC 33.5 g/dl (32.0-36.0); MEAN CELL VOLUME 87.2 fl (80-96); MEAN PLT VOLUME 7.2 fl (7.5-11.1); MONO % 11.2 % (3.8-10.2); NEUT % 55.9 % (42.8-82.8); PLATELET COUNT 350 K/MM3 (134-434); RBC 4.34 M/mm3 (3.60-5.2); RDW 13.7 % (11.6-15.6); WHITE BLOOD COUNT 4.3 K/mm3 (4.0-10.0)
[2019-09-18 12:54] LABS: HYALINE CASTS 0 /lpf (0-8); PH,URINE 6.5 (5.0-8.0); URINE APPEARANCE CLEAR; URINE BACTERIA 46.9 /hpf (NEGATIVE); URINE BILIRUBIN NEGATIVE (NEGATIVE); URINE COLOR YELLOW; URINE GLUCOSE (UA) NEGATIVE (NEGATIVE); URINE KETONE NEGATIVE (NEGATIVE); URINE LEUK ESTERASE NEGATIVE (NEGATIVE); URINE NITRITE NEGATIVE (NEGATIVE); URINE PROTEIN NEGATIVE (NEGATIVE); URINE RBC 3 /hpf (0-4); URINE UROBILINOGEN 0.2 mg/dL (0.2-1.0); URINE WBC 1 /hpf (0-5)
[2019-09-18 13:03] LABS: INR 1.09 (0.83-1.09); PROTHROMBIN TIME (PATIENT) 12.9 SEC (9.7-13.0)
[2019-09-18 13:06] LABS: ACTIVATED PTT 34.5 SECONDS (25.2-36.5)
--- NOTE | 2019-09-18 13:07 | PDOC ---
Documentation entered by Lisa Bustos SCRIBE, acting as scribe for Yen Cortés MD. Yen Cortés MD: This documentation has been prepared by the Akash noel Nirvannie, SCRIBE, under my direction and personally reviewed by me in its entirety. I confirm that the documentation accurately reflects all work, treatment, procedures, and medical decision making performed by me. History of Present Illness - General Chief Complaint: Vaginal Bleeding Stated Complaint: VAGINAL BLEEDING Time Seen by Provider: 09/18/19 11:29 History Source: Patient Exam Limitations: No Limitations - History of Present Illness Initial Comments: 09/18/19 13:17 HPI: 29YOF with a significant past medical history of right ovarian cyst and right breast cyst who presents to the emergency department with vaginal bleeding. As per patient, she recently finished her normal menstrual cycle a week ago ( lasted 2 weeks at that time) and today presents with vaginal bleeding. Patient notes her bleeding to have paused for a week but, describes her vaginal bleeding at electric cell tender than her normal menses (usually heavy bleeding first day today only one pad). She notes associated lightheadedness, dizziness, and one episode of chills. Patient endorses 2 days of white, creamy vaginal discharge with painful intercourse (last attempt with pain yesterday). 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 She requests HIV testing and STD testing last intercourse last night with partner no prior h/o STDs pt does adult entertainment via webcam and uses primarily sex toys, but no intercourse. Denies any vaginal itching, dysuria, frequency, urgency, or hematuria. Denies fever, chills, chest pain, SOB, palpitation, weakness, N, V, D, abdominal pain, bowel problems, leg swelling, No new changes in medications. Allergies: None Past Medical History: Right ovarian cyst and right breast cyst Social history: Lives with family. No tobacco, ETOH or drug use. Surgical history: , right breast cyst removal. Meds: as documented in EMR PMD: Dr. Gonzalez 09/18/19 15:38 Past History - Past Medical History Allergies/Adverse Reactions: Allergies Allergy/AdvReac Type Severity Reaction Status Date / Time bee pollen Allergy Verified 09/18/19 11:16 No Known Drug Allergies AdvReac Verified 09/18/19 11:16 pollen Allergy Uncoded 09/18/19 11:16 Home Medications: Ambulatory Orders NK [No Known Home Medication] 09/18/19 Anemia: Yes (DURING ) Asthma: No Cancer: No Cardiac Disorders: No CVA: No COPD: No CHF: No Dementia: No Diabetes: No GI Disorders: No Disorders: No HTN: No Hypercholesterolemia: No Liver Disease: No Seizures: No Thyroid Disease: No - Reproductive History (#): 2 Para: 2 Cervical CA: No Dysfunctional Uterine Bleeding: No Ectopic : No Endometrial CA: No Polycystic Ovaries: No Therapeutic (s) & number: No Tubal Ligation: No - Immunization History Immunization Up to Date: Yes - Psycho Social/Smoking Cessation Hx Smoking History: Never smoked Have you smoked in the past 12 months: No Hx Alcohol Use: No Drug/Substance Use Hx: No Substance Use Type: None Hx Substance Use Treatment: No Review of Systems - Review of Systems Able to Perform ROS?: Yes Comments:: 09/18/19 15:38 Review of systems: Constitutional: no fevers or chills. HEENT: no headache. No congestion. CVS: +Lightheadedness. no cp or syncope. Resp: no sob. No cough. Gastrointestinal: no abdominal pain, nausea or vomiting. Genitourinary: +Vaginal bleeding. +Vaginal discharge. no hematuria. MUSCULOSKELETAL: No joint pain and swelling. No neck or back pain. SKIN: no redness or skin changes, no discharge, no rash. No wounds. Hematologic: no easy bruising/bleeding. NEUROLOGIC: +Dizziness. No headache, dizziness, LOC or altered mental status. No weakness, numbness or tingling. Psych: no anxiety or depression Allergic/Immunologic: no allergies All other systems reviewed and negative, or as documented in HPI. *Physical Exam - Vital Signs Last Vital Signs Temp Pulse Resp BP Pulse Ox 98.3 F 69 18 110/53 L 99 09/18/19 11:01 09/18/19 11:01 09/18/19 11:01 09/18/19 11:01 09/18/19 11:01 - Physical Exam 09/18/19 15:37 Physical exam: General: Well appearing, awake and alert, NAD. HEENT: NCAT, PERRL, EOMI, clear conjunctiva, anicteric, moist mucous membranes , clear oropharynx, no oral lesions.. Neck: neck supple, FROM Resp: CTAB, normal and even respirations, no respiratory distress CVS: RRR, no murmurs, 2+ peripheral pulses throughout, no peripheral edema Abdomen: soft, NTND, no rebound or guarding. No CVAT. : normal external genitalia, no lesions, +vaginal vault dark brown blood , no CMT, no adnexal tenderness. Smooth and pink cervix, closed. no lesions or wounds or lacerations. no FB. chaperoned in presence of scribe Nirvanni Back: nontender, normal inspection and ROM] MSK: no edema, NAVARRETE x4, ROM intact. No clubbing or cyanosis. normal bulk and tone. left upper inner arm nexplanon visualized and palpated. Extremities: no calf tenderness Neuro: alert, oriented appropriately; no focal neurologic deficits Skin: warm and well perfused, cap refill <2 sec, normal color ED Treatment Course - LABORATORY CBC & Chemistry Diagram: 09/18/19 12:17 09/18/19 12:17 - ADDITIONAL ORDERS Additional order review: Laboratory Results 09/18/19 09/18/19 09/18/19 12:17 12:17 12:17 PT with INR 12.90 INR 1.09 Urine Color Yellow Urine Appearance Clear Urine pH 6.5 D Ur Specific [place] 1.012 Urine Protein Negative Urine Glucose (UA) Negative Urine Ketones Negative Urine Blood 2+ H Urine Nitrite Negative Urine Bilirubin Negative Urine Urobilinogen 0.2 Ur Leukocyte Esterase Negative Urine WBC (Auto) 1 Urine RBC (Auto) 3 Urine Casts (Auto) 0 U Epithel Cells (Auto) 2.0 Urine Bacteria (Auto) 46.9 Urine HCG, Qual Negative 09/18/19 12:17 RBC 4.34 MCV 87.2 MCHC 33.5 RDW 13.7 MPV 7.2 L Neutrophils % 55.9 Lymphocytes % 31.1 Monocytes % 11.2 H Eosinophils % 1.2 Basophils % 0.6 - RADIOLOGY Radiology Studies Ordered: Category Date Time Status TRANSVAGINAL ULTRASOUND US [US] Stat Ultrasound 09/18/19 12:40 Ordered Medical Decision Making - Medical Decision Making 09/18/19 13:05 Vital Signs Temp Pulse Resp BP Pulse Ox 98.3 F 69 18 110/53 L 99 09/18/19 11:01 09/18/19 11:01 09/18/19 11:01 09/18/19 11:01 09/18/19 11:01 DDx female abdominal pain/VB: ovarian cyst, ovarian torsion, TOA, appy, UTI, pyelonephritis, STD/PID, Mittelschmerz, anemia, electrolyte/metabolic derangements, DUB, Fibroid uterus, vaginitis, infection, STI no lower pelvic pain or abdominal sx to suggest intra abdominal infection/ inflammation. doubt appy. pelvic exam otherwise unremarkable, no e/o cerviciitis pt requesting STD testing and pelvic swab, HIV, sent and told to f/u results neg preg test UA neg for infection VS wnl, normotensive, no tachy or hypoxia/respiratory distress. abdomen benign on reeval and no peritoneal findings, no VB here, controlled TVUS with b/l follicles/simple cysts in ovaries, no torsion, good flow. normal uterus. Dispo: OB-[facility] [facility]OCIATE [facility]GE followup, bleeding precautions; pelvic rest, no intercourse or sex toys in case trauma related return to ED if persistent and heavy vaginal bleeding, persistent pelvic pain not relieved by your prescribed medications, dizziness, shortness of breath, new and persistent fevers, other foul smelling discolored vaginal discharge, or for any other concerns. 09/18/19 15:36 Discharge - Discharge Information Problems reviewed: Yes Clinical Impression/Diagnosis: Vaginal bleeding Ovarian cyst Qualifiers: Laterality: bilateral Qualified Code(s): N83.201 - Unspecified ovarian cyst, right side Condition: Good Disposition: HOME - Admission No - Follow up/Referral Referrals: Petey Gonzalez [Primary Care Provider] - [facility] [Provider Group] Maribel Gutiérrez DO [Staff Physician] - Beronica Antoine MD [Staff Physician] - Ashley Haddad MD [Staff Physician] - Annalise Epstein MD [Staff Physician] - - Patient Discharge Instructions Patient Printed Discharge Instructions: DI for Ovarian Cyst, DI for Vaginal Bleeding Additional Instructions: 1) Please follow-up with your primary care doctor in the next 1-2 days. Please call tomorrow for for any urgent issues. follow up with health information technologist, referrals given. avoid vaginal intercourse or foreign body or sex toys, pelvic rest is indicated to avoid further trauma and bleeding and monitor your vaginal bleeding. 2) You were given a copy of the tests performed today. Please bring the results with you and review them with your primary care doctor. Your laboratory / imaging results were normal, your ultrasound showed bilateral ovarian cysts and follicles which may be hormonally related and fluctuations. 3) If you have any worsening of symptoms or any other concerns please return to the ED immediately. Return if worsening symptoms including fevers, headache, vomiting, visual or hearing disturbances, abdominal pain, worsening bleeding, discharge, chest pain, shortness of breath, syncope, dehydration, inability to take things by mouth/vomiting, altered mental status, or worsening concerning symptoms. 4) Please continue taking your home medications as directed. tylenol and /or ibuprofen as needed for pain control. follow up on your HIV and STD testing, which will be followed up. Stay well hydrated and rest adequately. Make an appointment with health information technologist. If you cannot follow-up with your primary care doctor please return to the ED - Post Discharge Activity
[2019-09-18 13:14] LABS: ALBUMIN 3.8 g/dl (3.4-5.0); BILIRUBIN,TOTAL 0.4 mg/dL (0.2-1); BLOOD UREA NITROGEN 10.3 mg/dL (7-18); CREATININE 0.6 mg/dL (0.55-1.3); POTASSIUM 4.4 mmol/L (3.5-5.1); TOT PROT 7.4 g/dl (6.4-8.2)
== END 2019-09-18 15:30 | disposition home or self-care (01) ==
LOC: JER 10:55
DX: N93.8 Other specified abnormal uterine and vaginal bleeding (principal); N83.201 Unspecified ovarian cyst, right side; N83.202 Unspecified ovarian cyst, left side; Z91.030 Bee allergy status
CPT/HCPCS: 36415; 76830-TC; 80053; 81003; 84703; 85025; 85610; 85730; 86850; 86900; 86901; 87086; 87389; 87491; 87591; 87661; 99284-25

== ENCOUNTER 2021-02-26 01:41 | Emergency (ER) | payer OTHER ==
[2021-02-26] MEDS ORDERED: DIPHTH,PERTUSS(ACELL),TET 0.5 ML DISP.SYRIN IM ONE ×2 (02:24→02:42)
[2021-02-26 02:27] VITALS: BP 100/59; PULSE 80; TEMP 98.2; BMI 19.7
[2021-02-26] MEDS ORDERED: IBUPROFEN 600 MG TABLET (FP) PO ONE ×2 (03:04→03:09)
== END 2021-02-26 05:37 | disposition home or self-care (01) ==
LOC: JER 01:41
PROC: 3E0234Z Introduction of Serum, Toxoid and Vaccine into Muscle, Percutaneous Approach (ICD-10-PCS; principal; 2021-02-26)
DX: S93.401A Sprain of unspecified ligament of right ankle, initial encounter (principal)
CPT/HCPCS: 73610-TC-RT-FY; 73630-TC-RT-FY; 90471; 90715; 99284-25

== ENCOUNTER 2021-05-08 10:45 | Emergency (ER) | payer OTHER ==
[2021-05-08 11:00] VITALS: BP 104/68; PULSE 76; TEMP 98.4; BMI 19.5
[2021-05-08] MEDS ORDERED: LORATADINE 10 MG TABLET PO ONE (11:35)
[2021-05-08] MEDS ORDERED: LORATADINE 10 MG TABLET ONE (11:45)
== END 2021-05-08 12:01 | disposition home or self-care (01) ==
LOC: JERFT 10:45
DX: L50.0 Allergic urticaria (principal); T78.40XA Allergy, unspecified, initial encounter
CPT/HCPCS: 99283-25

== ENCOUNTER 2022-03-02 05:25 | Emergency (ER) | payer OTHER ==
[2022-03-02 05:34] VITALS: BP 118/76; PULSE 98; RESP 20; BMI 25.0
[2022-03-02 05:42] VITALS: TEMP 98.3
== END 2022-03-02 06:08 | disposition home or self-care (01) ==
LOC: JER 05:25
DX: U07.1 COVID-19 (principal)
CPT/HCPCS: 99281-25

== ENCOUNTER 2022-07-29 18:09 | Emergency (ER) | payer OTHER ==
[2022-07-29 18:24] VITALS: BP 102/64; PULSE 76; RESP 18; TEMP 98.8; BMI 19.5
[2022-07-29] MEDS ORDERED: LACTATED RINGERS SOLUTION 1000 ML INFUS.BAG IV ONE ×2 (18:49→21:15)
[2022-07-29] MEDS ORDERED: ONDANSETRON 4 MG/2 ML VIAL IVPUSH ONE (18:49)
[2022-07-29] MEDS ORDERED: ACETAMINOPHEN 1000 MG/100 ML BAG IVPB ONE (18:49)
[2022-07-29] MEDS ORDERED: FAMOTIDINE 20 MG/50 ML IVPB 20 MG/50 ML MG IVPB ONE ×2 (18:49→19:44)
[2022-07-29] MEDS ORDERED: ONDANSETRON 4 MG/2 ML VIAL ONE (19:44)
[2022-07-29] MEDS ORDERED: ACETAMINOPHEN INJECTION 100 ML IVPB ONE (19:44)
[2022-07-29 20:08] LABS: URINE APPEARANCE CLEAR; URINE BILIRUBIN NEGATIVE (NEGATIVE); URINE COLOR YELLOW; URINE GLUCOSE (UA) NEGATIVE (NEGATIVE); URINE KETONE TRACE (NEGATIVE); URINE LEUK ESTERASE NEGATIVE (NEGATIVE); URINE NITRITE NEGATIVE (NEGATIVE); URINE PROTEIN TRACE (NEGATIVE)
[2022-07-29 20:11] LABS: HCG,QUALITATIVE URINE Negative
[2022-07-29 20:27] LABS: HEMATOCRIT 41.4 % (32.4-45.2); HEMOGLOBIN 13.4 GM/dL (10.7-15.3); MCH 28.8 pg (25.7-33.7); MCHC 32.2 g/dl (32.0-36.0); MEAN CELL VOLUME 89.5 fl (80-96); MEAN PLT VOLUME 7.1 fl (7.5-11.1); PLATELET COUNT 285 10^3/uL (134-434); RBC 4.63 M/mm3 (3.60-5.2); RDW 13.4 % (11.6-15.6)
[2022-07-29 20:43] LABS: ALBUMIN 3.6 g/dl (3.4-5.0); BLOOD UREA NITROGEN 12.4 mg/dL (7-18); CALCIUM 8.5 mg/dL (8.5-10.1)
[2022-07-29 20:46] LABS: ANISOCYTOSIS 1+; MACROCYTOSIS 0; TEAR DROP CELLS 1+
[2022-07-29 20:48] LABS: TOT PROT 6.9 g/dl (6.4-8.2)
[2022-07-29 20:49] LABS: CREATININE 0.5 mg/dL (0.55-1.3)
[2022-07-29 23:53] LABS: HIV INTERPRETATION NEGATIVE (NEGATIVE)
== END 2022-07-29 22:38 | disposition home or self-care (01) ==
LOC: JER 18:09
PROC: 3E0333Z Introduction of Anti-inflammatory into Peripheral Vein, Percutaneous Approach (ICD-10-PCS; principal; 2022-07-29)
PROC: 3E033GC Introduction of Other Therapeutic Substance into Peripheral Vein, Percutaneous Approach (ICD-10-PCS; 2022-07-29)
PROC: 3E033GC Introduction of Other Therapeutic Substance into Peripheral Vein, Percutaneous Approach (ICD-10-PCS; 2022-07-29)
DX: R11.2 Nausea with vomiting, unspecified (principal)
CPT/HCPCS: 0241U-QW; 36415; 80053; 81003; 83690; 84703; 85025; 87389; 87491; 87591; 99284-25

== ENCOUNTER 2023-09-20 05:16 | Day surgery (SDC) | payer OTHER ==
[2023-09-17 15:14] VITALS: BMI 19.9
[2023-09-20] MEDS ORDERED: MIDAZOLAM HCL 2 MG/2 ML SINGLE DOSE VIAL ONE ×2 (07:31→07:52)
[2023-09-20] MEDS ORDERED: ONDANSETRON 4 MG/2 ML VIAL ONE (07:54)
[2023-09-20] MEDS ORDERED: PROPOFOL 20 ML ONE (07:55)
[2023-09-20] MEDS: ceFAZolin SODIUM 1 GM VIAL IVPB ONE (07:55)
[2023-09-20] MEDS: LIDOCAINE HCL 1%, 10 MG/ML (20ML VIAL) INF ONE (07:57)
[2023-09-20] MEDS: BUPIVACAINE HCL/PF 0.5% (5MG/ML) 10 ML VIAL IJ ONE (07:57)
[2023-09-20] MEDS: GENTAMICIN SO4 80 MG/2 ML VIAL IVPB ONE (08:30)
[2023-09-20] MEDS: DEXAMETHASONE SOD PHOSPHATE 10 MG/1 ML VIAL IM ONE (08:30)
[2023-09-20] MEDS ORDERED: ONDANSETRON 4 MG/2 ML VIAL IVPUSH PRN (08:48)
[2023-09-20] MEDS ORDERED: LACTATED RINGERS SOLUTION 1,000 ML IV SCH (09:00)
[2023-09-20 10:28] VITALS: BP 98/55; PULSE 51; RESP 18; TEMP 97.8
== END 2023-09-20 12:17 | disposition home or self-care (01) ==
LOC: JASU-SURG 05:16
PROVIDERS: ATTEND Podiatrist
PROC: 0QBQ0ZZ Excision of Right Toe Phalanx, Open Approach (ICD-10-PCS; principal; 2023-09-20 07:30)
DX: M20.41 Other hammer toe(s) (acquired), right foot (principal)
CPT/HCPCS: 73630-TC-RT-FY; 81025; 88304-TC; 94760; J1100

== ENCOUNTER 2024-04-17 13:14 | Emergency (ER) | payer OTHER ==
[2024-04-17 13:24] VITALS: BP 108/72; PULSE 84; RESP 19; TEMP 98.4; BMI 19.7
[2024-04-17 14:27] LABS: URINE APPEARANCE CLEAR; URINE BILIRUBIN NEGATIVE (NEGATIVE); URINE COLOR YELLOW; URINE GLUCOSE (UA) NEGATIVE (NEGATIVE); URINE KETONE NEGATIVE (NEGATIVE); URINE LEUK ESTERASE NEGATIVE (NEGATIVE); URINE NITRITE NEGATIVE (NEGATIVE); URINE PROTEIN NEGATIVE (NEGATIVE); URINE UROBILINOGEN 0.2 mg/dL (0.2-1.0)
[2024-04-17 14:30] LABS: HCG,QUALITATIVE URINE Negative
[2024-04-17] MEDS ORDERED: DOXYCYCLINE HYCLATE 100 MG CAPSULE PO ONE (14:55)
[2024-04-17] MEDS ORDERED: valACYclovir HCL 500 MG TABLET (FP) ONE ×2 (14:56→15:03)
[2024-04-17] MEDS: DOXYCYCLINE HYCLATE 100 MG CAPSULE PO ONE (15:11)
[2024-04-17] MEDS: valACYclovir HCL 500 MG TABLET (FP) PO ONE (15:11)
[2024-04-17] MEDS ORDERED: ONDANSETRON *ODT* 4 MG TABLET ONE (15:53)
[2024-04-17] MEDS: ONDANSETRON *ODT* 4 MG TABLET SL ONE (15:54)
[2024-04-17 16:07] LABS: HIV INTERPRETATION NEGATIVE (NEGATIVE)
== END 2024-04-17 16:11 | disposition home or self-care (01) ==
LOC: JERFT 13:14 → JER 13:14 → JERFT 16:11
DX: L29.2 Pruritus vulvae (principal); N89.8 Other specified noninflammatory disorders of vagina; N72 Inflammatory disease of cervix uteri; A60.04 Herpesviral vulvovaginitis
CPT/HCPCS: 36415; 81003; 82962; 84703; 86780; 86803; 87070; 87086; 87205; 87389; 87491; 87529; 87591; 87661; 99284-25; Q0162

== ENCOUNTER 2024-12-11 16:12 | Emergency (ER) | payer OTHER ==
[2024-12-11 16:30] VITALS: BMI 20.5
[2024-12-11] MEDS ORDERED: ACETAMINOPHEN 500 MG TABLET (FP) ONE (17:05)
[2024-12-11] MEDS: ACETAMINOPHEN 500 MG TABLET (FP) PO ONE (17:07)
[2024-12-11 17:21] LABS: EPI CELLS 2 /uL (0-25.1); HYALINE CASTS 0 /uL (0-3.1); PH,URINE 6.5 (5.0-8.0); URINE APPEARANCE Error; URINE BACTERIA 4317 /uL (0-1359); URINE BILIRUBIN NEGATIVE (NEGATIVE); URINE COLOR YELLOW; URINE GLUCOSE (UA) NEGATIVE (NEGATIVE); URINE KETONE NEGATIVE (NEGATIVE); URINE LEUK ESTERASE 3+ (NEGATIVE); URINE NITRITE NEGATIVE (NEGATIVE); URINE PROTEIN TRACE (NEGATIVE); URINE RBC 28 /uL (0-23.9); URINE WBC 607 /uL (0-25.8)
[2024-12-11 17:21] LABS: ABSOLUTE IMMATURE GRANULOCYTES 0.02 x10^3/uL (0.0-0.031); BASOPHILS # 0.02 x10^3/uL (0.01-0.08); HEMOGLOBIN 12.2 g/dL (11.2-15.7); MEAN CELL VOLUME 89.2 fl (79.4-94.8); MEAN PLT VOLUME 8.7 fl (9.4-12.3); MONOCYTE # 0.47 x10^3/uL (0.24-0.86); MONOCYTE % 5.9 % (4.7-12.5); PLATELET COUNT 305 x10^3/uL (182-369); RDW 13.2 % (12.1-16.8)
[2024-12-11 17:39] LABS: POTASSIUM 3.9 mmol/L (3.5-5.1)
[2024-12-11 17:40] LABS: ALBUMIN 3.9 g/dl (3.4-5.0); BLOOD UREA NITROGEN 10.1 mg/dL (7-18); CALCIUM 9.5 mg/dL (8.5-10.1)
[2024-12-11 17:44] LABS: BILIRUBIN,TOTAL 0.7 mg/dL (0.2-1); CREATININE 0.8 mg/dL (0.55-1.3)
[2024-12-11 17:45] LABS: TOT PROT 7.4 g/dl (6.4-8.2)
[2024-12-11 17:47] LABS: THROAT:GRP A STREP NOT DETECTED (NOTDETECTED)
[2024-12-11 18:34] LABS: HCV DIAGNOSTIC IN-HOUSE W/RFLX NON-REACTIVE (NONREACTIVE)
[2024-12-11 18:35] VITALS: BP 97/48; PULSE 80; RESP 18; TEMP 99.1
[2024-12-11 18:35] LABS: HIV INTERPRETATION NEGATIVE (NEGATIVE)
== END 2024-12-11 19:56 | disposition home or self-care (01) ==
LOC: JERFT 16:12
DX: N39.0 Urinary tract infection, site not specified (principal); J98.9 Respiratory disorder, unspecified; B97.89 Other viral agents as the cause of diseases classified elsewhere; R50.9 Fever, unspecified; R00.0 Tachycardia, unspecified; R05.9 Cough, unspecified; M79.10 Myalgia, unspecified site; R61 Generalized hyperhidrosis; R11.0 Nausea; J34.3 Hypertrophy of nasal turbinates; R53.81 Other malaise
CPT/HCPCS: 0241U-QW; 36415; 80053; 81003; 84703; 85025; 86803; 87086; 87186; 87389; 87651; 99283-25